=== PATIENT | male | born 1990 | race Caucasian/White ===

== ENCOUNTER 2017-01-22 08:25 | Emergency (ER) | payer OTHER ==
[~2017-01-22] VITALS: Ht 175.3 cm; Wt 113.4 kg
[2017-01-22] MEDS ORDERED: NS IV 1000 ML 1,000 ML IV SCH (08:45)
[2017-01-22] MEDS ORDERED: ONDANSETRON 4 MG/2 ML (SDV) Z0FRAN IVP ONE (08:45)
[2017-01-22] MEDS ORDERED: KETOROLAC 30 MG/ML VIAL IVP ONE (08:45)
--- NOTE | 2017-01-22 08:49 | ED Abdominal Pain ---
General Stated Complaint: POSS KIDNEY STONE Source of Information: Patient Exam Limitations: No Limitations History of Present Illness Time Seen By Provider: 08:44 Initial Comments This 26-year-old white male presents with a kidney stone. Patient's had multiple similar episodes in the past. Patient's had no fever, chills, hematuria, diarrhea, or hematemesis Patient said the approximately 6 kidney stones over the last 4 years. Patient was seen at [facility] and given tramadol without relief in his pain. Allergies and Home Medications Allergies Coded Allergies: No Known Drug Allergies (Unverified , 01/22/17) Home Medications Tramadol HCl 50 Mg Tablet, (Reported) Review of Systems Constitutional: No chills, No fever EENTM: No Ear Pain Cardiovascular: Denies Chest Pain Gastrointestinal: See HPI, Abdominal Pain, Denies Diarrhea, Nausea Genitourinary: See HPI, Denies Burning, Denies Discharge, Flank Pain (left), Denies Hematuria Musculoskeletal: see HPI, back pain Skin: no symptoms reported Psychiatric/Neurological: No Symptoms Reported Endocrine: No Symptoms Reported Hematologic/Lymphatic: No Symptoms Reported Past [id number] Hx Patient Social History Recent Foreign Travel: No Contact w/Someone Who Travel: No Reviewed Nursing Assessment Reviewed/Agree w Nursing PMH: Yes Physical Exam Vital Signs VS - Last 72 Hours, by Label 01/22/17 08:25 Temp 97.1 Pulse 71 Resp 18 B/P (MAP) 149/116 Pulse Ox 97 Capillary Refill : General Appearance: WD/WN, mild distress HEENT: normal ENT inspection Neck: non-tender, full range of motion Respiratory: lungs clear, normal breath sounds Cardiovascular: regular rate, rhythm Gastrointestinal: normal bowel sounds, non tender, soft, other (tenderness palpation left flank) Extremities: normal range of motion, non-tender, normal inspection Back: normal inspection, CVA tenderness (L) 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, no motor/sensory deficits, alert, normal mood/affect, oriented x 3 Progress/Results/Core Measures Results/Orders Lab Results Laboratory Tests Test 01/22/17 08:43 01/22/17 09:24 Range/Units White Blood Count 11.5 H 4.3-11.0 10^3/uL Red Blood Count 5.73 4.35-5.85 10^6/uL Hemoglobin 16.3 13.3-17.7 G/DL Hematocrit 48 40-54 % Mean Corpuscular Volume 83 80-99 FL Mean Corpuscular Hemoglobin 28 25-34 PG Mean Corpuscular Hemoglobin Concent 34 32-36 G/DL Red Cell Distribution Width 13.0 10.0-14.5 % Platelet Count 194 130-400 10^3/uL Mean Platelet Volume 10.8 H 7.4-10.4 FL Neutrophils (%) (Auto) 74 42-75 % Lymphocytes (%) (Auto) 17 12-44 % Monocytes (%) (Auto) 8 0-12 % Eosinophils (%) (Auto) 1 0-10 % Basophils (%) (Auto) 0 0-10 % Neutrophils # (Auto) 8.5 H 1.8-7.8 X 10^3 Lymphocytes # (Auto) 1.9 1.0-4.0 X 10^3 Monocytes # (Auto) 0.9 0.0-1.0 X 10^3 Eosinophils # (Auto) 0.1 0.0-0.3 10^3/uL Basophils # (Auto) 0.0 0.0-0.1 10^3/uL Neutrophils % (Manual) 72 % Lymphocytes % (Manual) 18 % Monocytes % (Manual) 5 % Band Neutrophils 5 % Toxic Granulation 1+ Blood Morphology Comment NORMAL My Orders Orders - JENNIFER PERRIN MD Ct Abd/Pelvis Wo(Kidney Stone) (01/22/17 08:40) Ns Iv 1000 Ml (Sodium Chloride 0.9%) (01/22/17 08:45) Ondansetron Injection (Zofran Injectio (01/22/17 08:45) Ketorolac Injection (Toradol Injection) (01/22/17 08:45) Ua Culture If Indicated (01/22/17 08:40) Comprehensive Metabolic Panel (01/22/17 08:40) Cbc With Automated Diff (01/22/17 08:40) Manual Differential (01/22/17 08:43) Medications Given in ED Current Medications Medications Dose Ordered Sig/Damian Route Start Time Stop Time Status Last Admin Dose Admin Ketorolac Tromethamine 30 mg ONCE ONCE IVP 01/22/17 08:45 01/22/17 08:47 DC 01/22/17 09:00 30 MG Ondansetron HCl 4 mg ONCE ONCE IVP 01/22/17 08:45 01/22/17 08:47 DC 01/22/17 09:00 4 MG Vital Signs/I&O Vital Sign - Last 12Hours 01/22/17 08:25 Temp 97.1 Pulse 71 Resp 18 B/P (MAP) 149/116 Pulse Ox 97 Progress Note : Time: 08:50 Progress Note Patient was treated with 30 mg Toradol IV, 4 mg Zofran IV, and a liter of normal saline. CT for kidney stone was ordered. 9:[address] showed moderate obstructive uropathy from a 7mm stone 11 cm proximal to the UVJ on the left. The patient's discomfort and nausea were significantly improved with the Toradol and Zofran respectively. I referred the patient to Dr. Vargas. I recommended that he have close follow- up with urology. Prescriptions for Toradol and Zofran were prescribed. Departure Impression Impression: Primary Impression: Kidney stone on left side Disposition: 01 HOME, SELF-CARE Condition: Improved Departure-Patient Inst. Decision time for Depature: 10:05 Referrals: NO,LOCAL PHYSICIAN (PCP) Primary Care Physician LEEANNE MARTINEZ MD Patient Instructions: Kidney Stones in Adults Add. Discharge Instructions: Toradol and Zofran for pain and nausea respectively. Follow-up with urology. Call the office in the morning. Return if any problems or questions. JENNIFER PERRIN MD Jan 22, 2017 08:49
[2017-01-22 08:59] LABS: BASOPHILS % (AUTO) 0 % (0-10); EOSINOPHILS # (AUTO) 0.1 10^3/uL (0.0-0.3); EOSINOPHILS % (AUTO) 1 % (0-10); LYMPHOCYTES # (AUTO) 1.9 X 10^3 (1.0-4.0); LYMPHOCYTES % (AUTO) 17 % (12-44); MEAN CORPUSCULAR HEMOGLOBIN 28 PG (25-34); MEAN CORPUSCULAR HGB CONC 34 G/DL (32-36); MEAN CORPUSCULAR VOLUME 83 FL (80-99); MEAN PLATELET VOLUME 10.8 FL (7.4-10.4); MONOCYTES # (AUTO) 0.9 X 10^3 (0.0-1.0); MONOCYTES % (AUTO) 8 % (0-12); NEUTROPHILS # (AUTO) 8.5 X 10^3 (1.8-7.8); NEUTROPHILS % (AUTO) 74 % (42-75); PLATELET COUNT 194 10^3/uL (130-400); RED BLOOD COUNT 5.73 10^6/uL (4.35-5.85); WHITE BLOOD COUNT 11.5 10^3/uL (4.3-11.0)
[2017-01-22 09:09] LABS: BAND NEUTROPHILS 5 %; LYMPHOCYTES % (MANUAL) 18 %; NEUTROPHILS % (MANUAL) 72 %
[2017-01-22] MEDS ORDERED: TRAM50TA2 (09:20)
--- NOTE | 2017-01-22 09:31 | Diagnostic Imaging Report ---
PROCEDURE: CT urinary tract, rule out kidney stone. TECHNIQUE: Multiple contiguous axial images were obtained through the abdomen and pelvis without the use of intravenous contrast. INDICATION: Left flank pain with hematuria x2 days. CORRELATION STUDY: None. FINDINGS: LOWER THORAX: Clear. LIVER: Unremarkable. GALLBLADDER: Present and unremarkable. No bile duct dilatation. SPLEEN: Unremarkable. PANCREAS: Unremarkable. ADRENAL GLANDS: Unremarkable. KIDNEYS: Moderate left-sided obstructive uropathy is present owing to a 6 x 7-mm stone within the left mid ureter. This is in the axial plane at the L5 level. The stone is approximately 11 cm proximal to the ureterovesical junction. Perinephric and ureteric stranding with some engorgement of the left kidney present. Right kidney: Small 2-mm stone in the mid and inferior pole present. Collecting system unremarkable. ABDOMINAL AORTA: Unremarkable, nonaneurysmal. A few central retroperitoneal and mesenteric lymph nodes present. GASTROINTESTINAL TRACT: No obstruction or inflammation. Normal appendix. URINARY BLADDER: Unremarkable. REPRODUCTIVE: Prostate gland unremarkable. OSSEOUS STRUCTURES: No acute abnormality. IMPRESSION: Moderate left-sided obstructive uropathy owing to an approximately 7-mm left ureteral stone. Dictated by: Dictated on workstation # [id number]
[2017-01-22 09:51] LABS: ALANINE AMINOTRANSFERASE 20 U/L (0-55); ANION GAP 13 MMOL/L (5-14); ASPARTATE AMINO TRANSFERASE 14 U/L (5-34); BILIRUBIN,TOTAL 0.9 MG/DL (0.1-1.0); BLOOD UREA NITROGEN 16 MG/DL (7-18); BUN/CREATININE RATIO 15; CALCIUM 8.9 MG/DL (8.5-10.1); CARBON DIOXIDE 22 MMOL/L (21-32); CHLORIDE 108 MMOL/L (98-107); CREATININE SERUM 1.06 MG/DL (0.60-1.30); GFR ESTIMATED > 60; GLUCOSE 122 MG/DL (70-105); SODIUM 143 MMOL/L (135-145); TOTAL PROTEIN 6.9 GM/DL (6.4-8.2)
[2017-01-22 10:22] VITALS: BP 130/78
== END 2017-01-22 10:22 | disposition home or self-care (01) ==
LOC: ER 08:28
DX: N20.0 Calculus of kidney (principal)
CPT/HCPCS: 36415; 74176; 80053; 85007; 85027